=== PATIENT | male | born 1990 | race African-American/Black ===

== ENCOUNTER 2018-04-02 17:52 | Emergency (ER) | payer MEDICAID ==
[~2018-04-02] VITALS: Ht 177.8 cm; Wt 87.0 kg
[2018-04-03 00:06] VITALS: BP 110/49
== END 2018-04-03 01:15 | disposition home or self-care (01) ==
LOC: ER 17:52
DX: R07.89 Other chest pain (principal); L72.0 Epidermal cyst; F12.10 Cannabis abuse, uncomplicated
CPT/HCPCS: 71045; 93005; 99283